=== PATIENT | male | born 1970 ===

== ENCOUNTER 2023-10-10 10:41 | Inpatient (IN) | payer OTHER ==
[~2023-10-10] VITALS: Ht 180.3 cm; Wt 99.8 kg
[2023-10-10] MEDS ORDERED: AVAPRO150 MG PO (11:46)
[2023-10-10] MEDS ORDERED: PROTONIX40 MG PO (11:47)
[2023-10-10] MEDS ORDERED: WELLBUTRIN XL150 M1 PO (11:47)
[2023-10-17 13:22] LABS: HEMATOCRIT 42.8 % (39.0-48.0); HEMOGLOBIN 14.5 g/dL (13-16.00); MEAN CELL VOLUME 89.5 fL (80.0-100.00); MEAN CORPUSCULAR HEMOGLOBIN 30.3 pg (27.00-32.0); MEAN CORPUSCULAR HGB CONC 33.9 g/dl (32.0-36.0); PLATELET COUNT 322 K/uL (150-450); RED BLOOD COUNT 4.78 M/uL (4.00-6.00); RED CELL DISTRIBUTION WIDTH 13.5 % (11.5-14.5)
[2023-10-17 14:51] LABS: ABG PH 7.374 (7.35-7.45); ABG pCO2 42.4 mmHg (35-45)
[2023-10-17 14:52] LABS: ABG PO2 102.3 mmHg (80-100); BASE EXCESS -1.1 mmol/l; BICARBONATE 24.2 mmol/l (23-25); SaO2 97.6 %; Tco2 25.5 mmol/l; allen test SATISFACTORY; o2 32 %; puncture site RADIAL RIGHT
[2023-10-18 04:58] LABS: HEMATOCRIT 40.4 % (39.0-48.0); HEMOGLOBIN 14.2 g/dL (13-16.00); MEAN CELL VOLUME 88.7 fL (80.0-100.00); MEAN CORPUSCULAR HEMOGLOBIN 31.2 pg (27.00-32.0); MEAN CORPUSCULAR HGB CONC 35.2 g/dl (32.0-36.0); PLATELET COUNT 263 K/uL (150-450); RED BLOOD COUNT 4.55 M/uL (4.00-6.00); RED CELL DISTRIBUTION WIDTH 13.7 % (11.5-14.5)
[2023-10-18 05:24] LABS: ALBUMIN 3.2 gm/dL (3.4-5.0); CALCIUM 8.4 mg/dL (8.5-10.1); CREATININE SERUM 0.96 mg/dL (0.70-1.30); GFR 81.32; MAGNESIUM 1.9 mg/dL (1.8-2.4); PHOSPHOROUS 3.5 mg/dL (2.5-4.9); POTASSIUM 4.55 mEq/L (3.5-5.1)
[2023-10-19 07:19] LABS: HEMATOCRIT 37.9 % (39.0-48.0); HEMOGLOBIN 13.1 g/dL (13-16.00); MEAN CELL VOLUME 89.3 fL (80.0-100.00); MEAN CORPUSCULAR HEMOGLOBIN 30.8 pg (27.00-32.0); MEAN CORPUSCULAR HGB CONC 34.5 g/dl (32.0-36.0); PLATELET COUNT 225 K/uL (150-450); RED BLOOD COUNT 4.25 M/uL (4.00-6.00); RED CELL DISTRIBUTION WIDTH 13.5 % (11.5-14.5)
[2023-10-19 07:59] LABS: CREATININE SERUM 0.82 mg/dL (0.70-1.30); GFR 97.54; MAGNESIUM 1.9 mg/dL (1.8-2.4); POTASSIUM 3.76 mEq/L (3.5-5.1)
[2023-10-19 08:21] LABS: PHOSPHOROUS 1.8 mg/dL (2.5-4.9)
[2023-10-19] MEDS ORDERED: HYOSCYAMINE0.125 M1 SL (09:59)
[2023-10-19] MEDS ORDERED: PAIN RELIEVER500 M2 PO (09:59)
[2023-10-19] MEDS ORDERED: INTESTINEX680 M1 PO (09:59)
[2023-10-20] MEDS ORDERED: LEVSIN/SL0.125 MG SL (10:28)
[2023-10-20] MEDS ORDERED: PROBIOTIC1 EAC2 PO (10:29)
[2023-10-20] MEDS ORDERED: ACETAMINOPHEN500 M1 PO (10:29)
== END 2023-10-20 12:17 | disposition home or self-care (01) | DRG 331 ==
LOC: SURG 10-17 05:34 → O/R 10-17 05:34 → SURG 10-17 08:30 → SURH 10-19 15:15
PROVIDERS: Internal Medicine Geriatric Medicine; ADMIT Colon & Rectal Surgery; ATTEND Colon & Rectal Surgery
PROC: 0DBP4ZZ Excision of Rectum, Percutaneous Endoscopic Approach (ICD-10-PCS; 2023-10-17)
PROC: 0DJD8ZZ Inspection of Lower Intestinal Tract, Via Natural or Artificial Opening Endoscopic (ICD-10-PCS; 2023-10-17)
PROC: 4A12X4Z Monitoring of Cardiac Electrical Activity, External Approach (ICD-10-PCS; 2023-10-17)
PROC: 0DTN4ZZ Resection of Sigmoid Colon, Percutaneous Endoscopic Approach (ICD-10-PCS; principal; 2023-10-17 08:30)
DX: K57.32 Diverticulitis of large intestine without perforation or abscess without bleeding (principal); K58.2 Mixed irritable bowel syndrome; K66.0 Peritoneal adhesions (postprocedural) (postinfection); G47.30 Sleep apnea, unspecified; I11.9 Hypertensive heart disease without heart failure